=== PATIENT | male | born 1935 | race Caucasian/White ===

== ENCOUNTER 2021-12-01 19:01 | Inpatient (IN) | payer BC, MEDICARE ==
--- NOTE | 2021-12-01 19:15 | ED ---
Weakness HPI - General Stated complaint: A-FIB - History of Present Illness Initial comments: This is a pleasant 87-year-old male history of diabetes mellitus, hyperlipid emia, hypertension. He presents to the emergency room today stating that he was coming from his porch into his kitchen and ended up getting lightheaded. Patient then fell backwards back onto the porch. Patient states he was not injured, he was able to get up on his own. He did not lose consciousness. Patient states he continued to have some lightheadedness with change of position. He denied any other preceding symptomology. There is no headache. No chest pain. No palpitations. Patient was noted to have atrial fibrillation on the rhythm strip in the ambulance. Patient has no history of this. Patient denies any head or neck pain. Patient not on blood thinners. Does take a daily aspirin. Patient denies hitting his head at all. LIGHTHEADEDNESS, No headache, no fever or chills, no changes in vision or hearing, no sore throat or difficulty with speech, no neck pain, no chest pain or shortness of breath, no abdominal pain, no nausea or vomiting, no changes in urination or bowel movements, no numbness or tingling, no extremity pain, no skin rashes or lesions. Past medical, surgical, social, and family history reviewed. - Related Data Home Medications Medication Instructions Recorded Confirmed Aspirin 325 mg PO DAILY 11/18/13 12/01/21 Metoprolol Tartrate [Lopressor] 25 mg PO BID 11/18/13 12/01/21 Simvastatin [Zocor] 20 mg PO HS 11/18/13 12/01/21 amLODIPine BESYLATE/BENAZEPRIL 1 cap PO DAILY 11/18/13 12/01/21 [Amlodipine-Benazepril 10-20 mg] cloNIDine HCL [Catapres] 0.1 mg PO HS 11/18/13 12/01/21 Tamsulosin HCl [Flomax] 0.4 mg PO DAILY 12/01/21 12/01/21 Tolterodine ER [Detrol LA] 4 mg PO DAILY 12/01/21 12/01/21 metFORMIN HCL ER [Glucophage XR] 1,000 mg PO BID 12/01/21 12/01/21 Allergies Allergy/AdvReac Type Severity Reaction Status Date / Time No Known Allergies Allergy Verified 12/01/21 21:48 Review of Systems ROS Statement: Those systems with pertinent positive or pertinent negative responses have been documented in the HPI. ROS Other: All systems not noted in ROS Statement are negative. Past Medical History Past Medical History: Diabetes Mellitus, Hyperlipidemia, Hypertension History of Any Multi-Drug Resistant Organisms: None Reported Past Surgical History: Coronary Bypass/CABG Past Psychological History: No Psychological Hx Reported Past Alcohol Use History: Rare Past Drug Use History: None Reported General Exam - General Exam Comments Initial Comments: Cranial nerves II through XII are intact. Patient is alert and oriented 4. Does not appear to be ill or toxic. No distress or complaints at the time I'm seeing him. Appears to be adequately hydrated. No mottling. Normal capillary refill. General appearance: alert, in no apparent distress Head exam: Present: atraumatic, normocephalic, normal inspection Eye exam: Present: normal appearance, PERRL, EOMI. Absent: scleral icterus, conjunctival injection, periorbital swelling ENT exam: Present: normal exam, mucous membranes moist Neck exam: Present: normal inspection, full ROM. Absent: tenderness, meningismus, lymphadenopathy Respiratory exam: Present: normal lung sounds bilaterally. Absent: respiratory distress, wheezes, rales, rhonchi, stridor, chest wall tenderness, accessory muscle use Cardiovascular Exam: Present: regular rate, irregular rhythm, normal heart sounds. Absent: systolic murmur, diastolic murmur, rubs, gallop, clicks GI/Abdominal exam: Present: soft, normal bowel sounds. Absent: distended, tenderness, guarding, rebound, rigid Extremities exam: Present: normal inspection, full ROM, normal capillary refill. Absent: tenderness, pedal edema, joint swelling, calf tenderness Back exam: Present: normal inspection Neurological exam: Present: alert, oriented X3, CN II-XII intact Psychiatric exam: Present: normal affect, normal mood Skin exam: Present: warm, dry, intact, normal color. Absent: rash Course Vital Signs 12/01/21 12/02/21 12/02/21 19:43 00:32 02:02 Temperature 99.0 F Pulse Rate 88 72 70 Respiratory 15 18 18 Rate Blood Pressure 129/68 141/68 O2 Sat by Pulse 98 96 97 Oximetry - Reevaluation(s) Reevaluation #1: 12/01/21 20:58 Medical record is reviewed Symptoms are improved here in the emergency department Patient is informed of results and questions answered Patient in no distress EKG Findings - EKG Comments: EKG Findings:: EKG done at 1925 read by the ED attending physician reveals sinus rhythm with frequent PACs. Nonspecific ST-T wave changes, mainly some T-wave flattening in V6 and some artifact in the precordial leads. Normal axis. Normal QRS morphology on baseline complexes. Patient does have a biphasic P wave. There is no comparison study Medical Decision Making - Medical Decision Making Visual with lightheadedness and rhythm strip consistent with new onset atrial fibrillation. Patient in no distress at the time I'm seeing him. Recalls the entire event. Did not lose consciousness. Had no preceding symptomology other than lightheadedness. Did not hit his head or neck. Not on blood thinners. Plan for evaluation and probable admission. Patient ended up having low magnesium in addition to the nonspecific cardiac arrhythmia. The case was discussed in detail with ED attending physician. Presentation, findings, treatment plan discussed in detail. Patient admitted to [facility] for further evaluation and treatment. Discussed with the [facility]. Supervising physician is Dr. Wetzel - Lab Data Result diagrams: 12/01/21 19:35 12/01/21 19:35 Lab Results 12/01/21 12/01/21 12/01/21 Range/Units 19:35 19:35 19:35 WBC 7.5 (3.8-10.6) k/uL RBC 3.40 L (4.30-5.90) m/uL Hgb 11.0 L (13.0-17.5) gm/dL Hct 32.5 L (39.0-53.0) % MCV 95.5 (80.0-100.0) fL MCH 32.4 (25.0-35.0) pg MCHC 33.9 (31.0-37.0) g/dL RDW 12.6 (11.5-15.5) % Plt Count 96 L (150-450) k/uL MPV 8.3 Neutrophils % 85 % Lymphocytes % 6 % Monocytes % 7 % Eosinophils % 0 % Basophils % 0 % Neutrophils # 6.4 (1.3-7.7) k/uL Lymphocytes # 0.5 L (1.0-4.8) k/uL Monocytes # 0.5 (0-1.0) k/uL Eosinophils # 0.0 (0-0.7) k/uL Basophils # 0.0 (0-0.2) k/uL PT 10.6 (9.0-12.0) sec INR 1.0 (<1.2) APTT 18.7 L (22.0-30.0) sec Sodium 137 (137-145) mmol/L Potassium 4.6 (3.5-5.1) mmol/L Chloride 103 (98-107) mmol/L Carbon Dioxide 19 L (22-30) mmol/L Anion Gap 15 mmol/L BUN 23 H (9-20) mg/dL Creatinine 1.17 (0.66-1.25) mg/dL Est GFR (CKD-EPI)AfAm 64 (>60 ml/min/1.73 sqM) Est GFR (CKD-EPI)NonAf 55 (>60 ml/min/1.73 sqM) Glucose 136 H (74-99) mg/dL Calcium 9.0 (8.4-10.2) mg/dL Magnesium 1.2 L (1.6-2.3) mg/dL Total Bilirubin 0.6 (0.2-1.3) mg/dL AST 32 (17-59) U/L ALT 9 (4-49) U/L Alkaline Phosphatase 46 (38-126) U/L Troponin I (0.000-0.034) ng/mL NT-Pro-B Natriuret Pep pg/mL Total Protein 6.6 (6.3-8.2) g/dL Albumin 4.3 (3.5-5.0) g/dL TSH 2.130 (0.465-4.680) mIU/L 12/01/21 12/01/21 Range/Units 19:35 19:35 WBC (3.8-10.6) k/uL RBC (4.30-5.90) m/uL Hgb (13.0-17.5) gm/dL Hct (39.0-53.0) % MCV (80.0-100.0) fL MCH (25.0-35.0) pg MCHC (31.0-37.0) g/dL RDW (11.5-15.5) % Plt Count (150-450) k/uL MPV Neutrophils % % Lymphocytes % % Monocytes % % Eosinophils % % Basophils % % Neutrophils # (1.3-7.7) k/uL Lymphocytes # (1.0-4.8) k/uL Monocytes # (0-1.0) k/uL Eosinophils # (0-0.7) k/uL Basophils # (0-0.2) k/uL PT (9.0-12.0) sec INR (<1.2) APTT (22.0-30.0) sec Sodium (137-145) mmol/L Potassium (3.5-5.1) mmol/L Chloride (98-107) mmol/L Carbon Dioxide (22-30) mmol/L Anion Gap mmol/L BUN (9-20) mg/dL Creatinine (0.66-1.25) mg/dL Est GFR (CKD-EPI)AfAm (>60 ml/min/1.73 sqM) Est GFR (CKD-EPI)NonAf (>60 ml/min/1.73 sqM) Glucose (74-99) mg/dL Calcium (8.4-10.2) mg/dL Magnesium (1.6-2.3) mg/dL Total Bilirubin (0.2-1.3) mg/dL AST (17-59) U/L ALT (4-49) U/L Alkaline Phosphatase (38-126) U/L Troponin I <0.012 (0.000-0.034) ng/mL NT-Pro-B Natriuret Pep 867 pg/mL Total Protein (6.3-8.2) g/dL Albumin (3.5-5.0) g/dL TSH (0.465-4.680) mIU/L - Radiology Data Radiology results: report reviewed, image reviewed Disposition Clinical Impression: Syncope, near, Hypomagnesemia, Cardiac arrhythmia, unspecified Disposition: ADMITTED IP TO THIS [facility] Condition: Stable Is patient prescribed a controlled substance at d/c from ED?: No Decision to Admit Reason: Admit from EC Decision Time: 20:58
[2021-12-01] MEDS ORDERED: SODIUM CHLORIDE 0.9% 500 ML 500 ML IV STA (19:22)
[2021-12-01 20:08] LABS: Basophils % (A) 0 %; Eosinophils % (A) 0 %; HCT 32.5 % (39.0-53.0); Lymphocytes # (A) 0.5 k/uL (1.0-4.8); Lymphocytes % (A) 6 %; MCH 32.4 pg (25.0-35.0); MCHC 33.9 g/dL (31.0-37.0); MCV 95.5 fL (80.0-100.0); Mean Platelet Volume 8.3; Monocytes # (A) 0.5 k/uL (0-1.0); Monocytes % (A) 7 %; Neutrophils # (A) 6.4 k/uL (1.3-7.7); Neutrophils % (A) 85 %; RDW 12.6 % (11.5-15.5); WBC 7.5 k/uL (3.8-10.6)
[2021-12-01 20:17] LABS: Platelet Count 96 k/uL (150-450)
[2021-12-01 20:22] LABS: ALT 9 U/L (4-49); AST 32 U/L (17-59); African American GFR (CKD) 64 (>60 ml/min/1.73 sqM); Albumin 4.3 g/dL (3.5-5.0); Alkaline Phosphatase 46 U/L (38-126); Anion Gap 15 mmol/L; Blood Urea Nitrogen 23 mg/dL (9-20); Carbon Dioxide 19 mmol/L (22-30); Chloride 103 mmol/L (98-107); Glucose 136 mg/dL (74-99); Magnesium 1.2 mg/dL (1.6-2.3); Non-African American GFR(CKD) 55 (>60 ml/min/1.73 sqM); Potassium 4.6 mmol/L (3.5-5.1); Sodium 137 mmol/L (137-145); Total Bilirubin 0.6 mg/dL (0.2-1.3); Total Protein 6.6 g/dL (6.3-8.2)
[2021-12-01 20:30] LABS: Prothrombin Time 10.6 sec (9.0-12.0)
[2021-12-01 20:35] LABS: Partial Thromboplastin Time 18.7 sec (22.0-30.0)
--- NOTE | 2021-12-01 20:36 | XR ---
EXAMINATION TYPE: XR chest 1V portable DATE OF EXAM: 12/01/2021 COMPARISON: NONE HISTORY: Atrial fibrillation TECHNIQUE: Single view FINDINGS: There is some coarsening of the interstitial markings in the lower lobes. There is some coa lescent density lateral left lung base. No heart failure. There are sternal wires. Heart size is fair ly normal. There are calcified granulomata at the pulmonary padmini. IMPRESSION: There is evidence of some left lower lobe pneumonia. Old granulomatous disease. No heart failure.
[2021-12-01] MEDS ORDERED: Magnesium Replacement Protocol 1 EACH MISC MISCELLANE PRN (20:57)
[2021-12-01] MEDS: MAGNESIUM SULFATE-D5W PMX 1 GM in DEXTROSE/WATER 1 100ML.BAG IVPB SCH (21:27)
[2021-12-01] MEDS ORDERED: NALOXONE 0.4 MG/ML 1 ML VIAL IV PRN (21:49)
[2021-12-01] MEDS ORDERED: DEXTROSE 50% SYRINGE 50 ML IVP PRN ×2 (21:55)
[2021-12-01] MEDS ORDERED: ACETAMINOPHEN TAB 325 MG TAB PO PRN (22:30)
[2021-12-02] MEDS: MAGNESIUM SULFATE-D5W PMX 1 GM in DEXTROSE/WATER 1 100ML.BAG IVPB SCH ×2 (00:12→03:29)
[2021-12-02 01:16] LABS: Appearance,Urine Clear (Clear); Bilirubin,Urine Negative (Negative); Blood,Urine Negative (Negative); Color,Urine Colorless; Glucose,Urine (UA) Negative (Negative); Ketones,Urine Negative (Negative); Leukocyte Esterase,Urine Negative (Negative); Nitrite,Urine Negative (Negative); PH, Urine 7.5 (5.0-8.0); Protein,Urine Trace (Negative); Specific Gravity,Urine 1.007 (1.001-1.035); Urobilinogen,Urine <2.0 mg/dL (<2.0)
[2021-12-02 03:24] LABS: Basophils # (A) 0.1 k/uL (0-0.2); Basophils % (A) 1 %; Eosinophils % (A) 0 %; HGB 12.5 gm/dL (13.0-17.5); Lymphocytes # (A) 0.5 k/uL (1.0-4.8); Lymphocytes % (A) 8 %; MCH 33.3 pg (25.0-35.0); MCHC 34.6 g/dL (31.0-37.0); MCV 96.1 fL (80.0-100.0); Mean Platelet Volume 7.8; Monocytes # (A) 0.6 k/uL (0-1.0); Monocytes % (A) 9 %; Neutrophils # (A) 4.7 k/uL (1.3-7.7); Neutrophils % (A) 79 %; RBC 3.75 m/uL (4.30-5.90)
[2021-12-02 03:36] LABS: Platelet Count 176 k/uL (150-450)
[2021-12-02 03:40] LABS: Calcium 8.7 mg/dL (8.4-10.2); Magnesium 1.8 mg/dL (1.6-2.3); Potassium 4.2 mmol/L (3.5-5.1)
[2021-12-02 06:04] LABS: Glucose,Whole Blood 136 mg/dL (70-110)
[2021-12-02] MEDS: INSULIN ASPART (NovoLOG) 100 UNIT/ML VIAL SQ SCH ×5 (06:28→20:31)
[2021-12-02] MEDS ORDERED: lisinopriL 20 MG TAB PO SCH (09:00)
[2021-12-02] MEDS: amLODIPine 10 MG TAB PO SCH (09:00)
[2021-12-02] MEDS: TAMSULOSIN 0.4 MG CAP.ER.24H PO SCH (09:00)
[2021-12-02] MEDS: ASPIRIN 325 MG TAB PO SCH (09:00)
[2021-12-02] MEDS ORDERED: METOPROLOL TARTRATE 25 MG TAB PO SCH (09:00)
[2021-12-02] MEDS: HEPARIN SODIUM,PORCINE/PF 5,000 UNIT/0.5 ML SYRINGE SQ SCH ×2 (09:01→20:30)
[2021-12-02] MEDS: OXYBUTYNIN 10 MG TAB.ER.24 PO SCH (09:01)
[2021-12-02] MEDS ORDERED: VALSARTAN 160 MG TAB PO SCH (09:15)
--- NOTE | 2021-12-02 11:03 | P.CRDCN ---
History of Present Illness History of present illness: HISTORY OF PRESENTING ILLNESS This is a pleasant 86-year-old male past medical history significant for coronary artery disease with prior CABG, type 2 diabetes, hypertension, dyslipidemia. He used to see Dr. Palma 10+ years ago. We have been asked to see in consultation for near-syncope, nonspecific cardiac arrhythmia. Patient presents emergency department with complaints of lightheadedness and near syncope. Patient states yesterday he was outside he was started to walk inside on his porch, he states that he stepped up on the ledge by the door and all of a sudden fell backwards and could not get up. He did not lose consciousness. He has had some symptoms of dizziness. He states he felt generalized weakness on the ground and could not get himself up. He denies any syncope in the past. He denies any chest pain, shortness of breath, palpitations, nausea, vomiting, fever, cough, chills. No history of CVA or seizures. Former smoker. DIAGNOSTICS * EKG reveals sinus rhythm, heart rate 93, PAC and PVCs noted. Nonspecific STT wave abnormalities. No acute ischemia noted. * No EKGs from EMS to review * Telemetry tracings indicate sinus rhythm with 2nd degree AV block Mobitz II, HR 60s-80s * Chest xray reported as left lower lobe pneumonia, no heart failure, sternal wires present unable to open xray images. * Laboratory reviewed, WBC 6.0, hemoglobin 12.5, platelets 176, sodium 1:30, potassium 4.2, BUN 20, serum creatinine 1.1, troponin negative 3, magnesium 1.8, BNP 867, TSH within normal limits * Current home medications include aspirin 325 mg daily, amlodipinebenazepril 1020 mg daily, clonidine 0.1 mg nightly, metoprolol titrate 25 mg twice a day, simvastatin 20 mg nightly, metformin, Detrol, Flomax REVIEW OF SYSTEMS At the time of my exam: CONSTITUTIONAL: Denies fever or chills.+lightheadedness CARDIOVASCULAR: Denies chest pain, shortness of breath, orthopnea, PND or palpitations. RESPIRATORY: Denies cough. GASTROINTESTINAL: Denies abdominal pain, diarrhea, constipation, nausea or vomiting. MUSCULOSKELETAL: Denies myalgias. NEUROLOGIC: Denies numbness, tingling, headacbe or weakness. ENDOCRINE: Denies fatigue, weight change, polydipsia or polyurina. GENITOURINARY: Denies burning, hematuria or urgency with micturation. HEMATOLOGIC: Denies history of anemia or bleeding. PHYSICAL EXAMINATION Vitals reviewed CONSTITUTIONAL: No apparent distress. HEENT: Head is normocephalic. Pupils are equal, round. Sclerae anicteric. Mucous membranes of the mouth are moist. No JVD. No carotid bruit. CHEST EXAMINATION: Lungs are clear to auscultation. No chest wall tenderness is noted on palpation or with deep breathing. HEART EXAMINATION: Regular rate and rhythm. S1, S2 heard. No murmurs, gallops or rub. ABDOMEN: Soft, nontender. Positive bowel sounds. EXTREMITIES: 2+ peripheral pulses, no lower extremity edema and no calf tenderness. NEUROLOGIC EXAMINATION: Patient is awake, alert and oriented x3. ASSESSMENT Lightheadedness/Dizziness, possible near syncope 2nd degree AV block mobitz II Generalized weakness Hypomagnesemia, resolved Coronary artery disease with prior CABG Type 2 diabetes History of hypertension Dyslipidemia PLAN Obtain 2D echocardiogram and doppler study to assess cardiac structure and function. Stop clonidine and beta foreign Continue amlodipine 10 mg daily Start valsartan 160 mg daily Continue statin Continue cardiac telemetry Patient likely will need a pacemaker, will continue to monitor, NPO after midnight based on above findings Further recommendations based on clinical course Nurse practitioner note has been reviewed by physician. Signing provider agrees with the documented findings, assessment, and plan of care. Past Medical History Past Medical History: Diabetes Mellitus, Hyperlipidemia, Hypertension History of Any Multi-Drug Resistant Organisms: None Reported Past Surgical History: Coronary Bypass/CABG Smoking Status: Former smoker Medications and Allergies Home Medications Medication Instructions Recorded Confirmed Type Aspirin 325 mg PO DAILY 11/18/13 12/01/21 History Metoprolol Tartrate [Lopressor] 25 mg PO BID 11/18/13 12/01/21 History Simvastatin [Zocor] 20 mg PO HS 11/18/13 12/01/21 History amLODIPine BESYLATE/BENAZEPRIL 1 cap PO DAILY 11/18/13 12/01/21 History [Amlodipine-Benazepril 10-20 mg] cloNIDine HCL [Catapres] 0.1 mg PO HS 11/18/13 12/01/21 History Tamsulosin HCl [Flomax] 0.4 mg PO DAILY 12/01/21 12/01/21 History Tolterodine ER [Detrol LA] 4 mg PO DAILY 12/01/21 12/01/21 History metFORMIN HCL ER [Glucophage XR] 1,000 mg PO BID 12/01/21 12/01/21 History Allergies Allergy/AdvReac Type Severity Reaction Status Date / Time No Known Allergies Allergy Verified 12/01/21 21:48 Physical Exam Vitals: Vital Signs Temp Pulse Pulse Resp BP BP Pulse Ox 12/02/21 02:48 99.4 F 82 16 159/68 95 12/02/21 02:02 70 18 141/68 97 12/02/21 00:32 72 18 96 12/01/21 19:43 99.0 F 88 15 129/68 98 Intake and Output 12/01/21 12/01/21 12/02/21 14:59 22:59 06:59 Output Total 675 Balance -675 Output: Urine 675 Other: Voiding Method Toilet Urinal # Voids 1 Weight 72.575 kg 72.575 kg Results 12/02/21 03:07 12/02/21 03:07 Cardiac Enzymes 12/01/21 12/01/21 12/02/21 Range/Units 19:35 19:35 00:53 AST 32 (17-59) U/L Troponin I <0.012 <0.012 (0.000-0.034) ng/mL 12/02/21 Range/Units 03:07 AST (17-59) U/L Troponin I <0.012 (0.000-0.034) ng/mL Coagulation 12/01/21 Range/Units 19:35 PT 10.6 (9.0-12.0) sec APTT 18.7 L (22.0-30.0) sec CBC 12/01/21 12/02/21 Range/Units 19:35 03:07 WBC 7.5 6.0 (3.8-10.6) k/uL RBC 3.40 L 3.75 L (4.30-5.90) m/uL Hgb 11.0 L 12.5 L (13.0-17.5) gm/dL Hct 32.5 L 36.0 L (39.0-53.0) % Plt Count 96 L 176 D (150-450) k/uL Comprehensive Metabolic Panel 12/01/21 12/02/21 Range/Units 19:35 03:07 Sodium 137 138 (137-145) mmol/L Potassium 4.6 4.2 (3.5-5.1) mmol/L Chloride 103 104 (98-107) mmol/L Carbon Dioxide 19 L 23 (22-30) mmol/L BUN 23 H 20 (9-20) mg/dL Creatinine 1.17 1.12 (0.66-1.25) mg/dL Glucose 136 H 134 H (74-99) mg/dL Calcium 9.0 8.7 (8.4-10.2) mg/dL AST 32 (17-59) U/L ALT 9 (4-49) U/L Alkaline Phosphatase 46 (38-126) U/L Total Protein 6.6 (6.3-8.2) g/dL Albumin 4.3 (3.5-5.0) g/dL Current Medications Generic Name Dose Route Start Last Admin Trade Name Freq PRN Reason Stop Dose Admin Acetaminophen 650 mg 12/01/21 22:30 Acetaminophen Tab 325 Mg Tab PO Q6HR PRN Mild Pain or Fever > 100.5 Amlodipine Besylate 10 mg 12/02/21 09:00 Amlodipine 10 Mg Tab PO DAILY [facility] Aspirin 325 mg 12/02/21 09:00 Aspirin 325 Mg Tab PO DAILY [facility] Atorvastatin Calcium 10 mg 12/02/21 21:00 Atorvastatin 10 Mg Tab PO HS [facility] Clonidine 0.1 mg 12/02/21 21:00 Clonidine Hcl 0.1 Mg Tab PO HS [facility] Dextrose/Water 25 ml 12/01/21 21:55 Dextrose 50% Syringe 50 Ml IVP PER PROTOCOL PRN Hypoglycemia Protocol Dextrose/Water 50 ml 12/01/21 21:55 Dextrose 50% Syringe 50 Ml IVP PER PROTOCOL PRN Hypoglycemia Protocol Heparin Sodium (Porcine) 5,000 unit 12/02/21 09:00 Heparin Sodium,Porcine/Pf 5,000 Unit/0.5 Ml Syringe SQ Q12HR [facility] Insulin Aspart 0 unit 12/02/21 07:30 12/02/21 06:28 Insulin Aspart (Novolog) 100 Unit/Ml Vial SQ Not Given ACHS [facility] Protocol Lisinopril 40 mg 12/02/21 09:00 Lisinopril 20 Mg Tab PO DAILY [facility] Metoprolol Tartrate 25 mg 12/02/21 09:00 Metoprolol Tartrate 25 Mg Tab PO BID [facility] Miscellaneous Information 1 each 12/01/21 20:57 Magnesium Replacement Protocol 1 Each Misc MISCELLANE DAILY PRN Per Protocol Protocol Naloxone HCl 0.2 mg 12/01/21 21:49 Naloxone 0.4 Mg/Ml 1 Ml Vial IV Q2M PRN Opioid Reversal Oxybutynin Chloride 10 mg 12/02/21 09:00 Oxybutynin 10 Mg Tab.Er.24 PO DAILY [facility] Tamsulosin HCl 0.4 mg 12/02/21 09:00 Tamsulosin 0.4 Mg Cap.Er.24h PO DAILY [facility] Intake and Output 12/01/21 12/01/21 12/02/21 14:59 22:59 06:59 Output Total 675 Balance -675 Output: Urine 675 Other: Voiding Method Toilet Urinal # Voids 1 Weight 72.575 kg 72.575 kg Patient Weight 12/02/21 06:59 Weight 72.575 kg 12/02/21 03:07 12/02/21 03:07
[2021-12-02] MEDS ORDERED: SODIUM CHLORIDE 0.9% 1,000 ML IV SCH ×3 (12:00→12:15)
--- NOTE | 2021-12-02 12:35 | P.HPIM ---
History of Present Illness H&P Date: 12/02/21 This is an 86 year old male patient of Dr. Newby, past medical history of hypertension, hyperlipidemia, diabetes, coronary artery bypass grafting. Follows with Dr Palma. Patient presents to the emergency room with complaints of lightheadedness while ambulating resulting in fall. States he was sitting on porch, got up, and had just reached the last step into his house when he felt dizzy and fell backwards. Patient states he did not lose consciousness, denies injury. No chest pain reported. There was question of patient being in atrial fibrillation in the EC. EKG in the ER shows sinus rhythm with PVC's heart rate of 93. QT interval 436. Patient had chest xray showing possible left lower lobe pneumonia. Chest xray reviewed pleural effusion possibly from fluid overload, pneumonia felt unlikely. Does not have a white count, has maintained adequate saturation on room air, 97%. Denies shortness of breath. Does have low grade fever 99.4. Patient received a 1L fluid bolus in the E.C. Troponin level negative x 3, proBNP 867. TSH within normal limits. Urinalysis is negative. Patient admitted to the hospital with consult placed to cardiology, echocardiogram has been ordered. Will check orthostatics and procalcitonin level. REVIEW OF SYSTEMS: CONSTITUTIONAL: No fever, no malaise, no fatigue. HEENT: No recent visual problems or hearing problems. Denied any sore throat. CARDIOVASCULAR: No chest pain, orthopnea, PND, no palpitations, reports dizziness lightheadedness with ambulation PULMONARY: No shortness of breath, no cough, no hemoptysis. GASTROINTESTINAL: No diarrhea, no nausea, no vomiting, no abdominal pain. NEUROLOGICAL: No headaches, no weakness, no numbness. HEMATOLOGICAL: Denies any bleeding or petechiae. GENITOURINARY: Denies any burning micturition, frequency, or urgency. MUSCULOSKELETAL/RHEUMATOLOGICAL: Denies any joint pain, swelling, or any muscle pain. ENDOCRINE: Denies any polyuria or polydipsia. The rest of the 14-point review of systems is negative. PHYSICAL EXAMINATION: GENERAL: The patient is alert and oriented x3, not in any acute distress. Well developed, well nourished. HEENT: Pupils are round and equally reacting to light. EOMI. No scleral icterus. No conjunctival pallor. Normocephalic, atraumatic. No pharyngeal erythema. No thyromegaly. CARDIOVASCULAR: S1 and S2 present. Systolic Murmur PULMONARY: Chest is clear to auscultation, no wheezing or crackles. ABDOMEN: Soft, nontender, nondistended, normoactive bowel sounds. No palpable organomegaly. MUSCULOSKELETAL: No joint swelling or deformity. EXTREMITIES: No cyanosis, clubbing, or pedal edema. NEUROLOGICAL: Gross neurological examination did not reveal any focal deficits. SKIN: No rashes. Assessment and Plan Assessment Presyncope with fall under investigation Left pleural effusion rule out pneumonia which is not felt likely, patient does not have white count, no dyspnea, on room air. Will check procalcitonin level. Hypomagnesemia Diabetes Mellitus type 2, A1C 6.5. Hypertension Hyperlipidemia Post CABG GI prophylaxis DVT prophylaxis Full Code Plan Cardiology consultation Echocardiogram pending Check orthostatics Check procalcitonin level Hold metformin Repeat CBC in Am The impression and plan of care has been dictated by Manisha Valdes, Nurse Practitioner as directed. Dr. Sanya MD I have performed a history and physical examination and medical decision making of this patient, discussed the same with the dictator, and agree with the dictators assessment and plan as written, documented as a scribe. Based on total visit time, I have performed more than 50% of this visit. Past Medical History Past Medical History: Diabetes Mellitus, Hyperlipidemia, Hypertension History of Any Multi-Drug Resistant Organisms: None Reported Past Surgical History: Coronary Bypass/CABG Smoking Status: Former smoker Medications and Allergies Home Medications Medication Instructions Recorded Confirmed Type Aspirin 325 mg PO DAILY 11/18/13 12/01/21 History Metoprolol Tartrate [Lopressor] 25 mg PO BID 11/18/13 12/01/21 History Simvastatin [Zocor] 20 mg PO HS 11/18/13 12/01/21 History amLODIPine BESYLATE/BENAZEPRIL 1 cap PO DAILY 11/18/13 12/01/21 History [Amlodipine-Benazepril 10-20 mg] cloNIDine HCL [Catapres] 0.1 mg PO HS 11/18/13 12/01/21 History Tamsulosin HCl [Flomax] 0.4 mg PO DAILY 12/01/21 12/01/21 History Tolterodine ER [Detrol LA] 4 mg PO DAILY 12/01/21 12/01/21 History metFORMIN HCL ER [Glucophage XR] 1,000 mg PO BID 12/01/21 12/01/21 History Allergies Allergy/AdvReac Type Severity Reaction Status Date / Time No Known Allergies Allergy Verified 12/01/21 21:48 Physical Exam Vitals: Vital Signs Temp Pulse Pulse Resp BP BP Pulse Ox 12/02/21 08:54 98.8 F 77 16 168/70 95 12/02/21 02:48 99.4 F 82 16 159/68 95 12/02/21 02:02 70 18 141/68 97 12/02/21 00:32 72 18 96 12/01/21 19:43 99.0 F 88 15 129/68 98 Intake and Output 12/01/21 12/02/21 12/02/21 22:59 06:59 14:59 Output Total 675 Balance -675 Output: Urine 675 Other: Voiding Method Toilet Urinal # Voids 1 Weight 72.575 kg 72.575 kg Results CBC & Chem 7: 12/02/21 03:07 12/02/21 03:07 Labs: Abnormal Lab Results - Last 24 Hours (Table) 12/01/21 12/01/21 12/01/21 Range/Units 19:35 19:35 19:35 RBC 3.40 L (4.30-5.90) m/uL Hgb 11.0 L (13.0-17.5) gm/dL Hct 32.5 L (39.0-53.0) % Plt Count 96 L (150-450) k/uL Lymphocytes # 0.5 L (1.0-4.8) k/uL APTT 18.7 L (22.0-30.0) sec Carbon Dioxide 19 L (22-30) mmol/L BUN 23 H (9-20) mg/dL Glucose 136 H (74-99) mg/dL POC Glucose (mg/dL) (70-110) mg/dL Magnesium 1.2 L (1.6-2.3) mg/dL Urine Protein (Negative) 12/02/21 12/02/21 12/02/21 Range/Units 00:38 03:07 03:07 RBC 3.75 L (4.30-5.90) m/uL Hgb 12.5 L (13.0-17.5) gm/dL Hct 36.0 L (39.0-53.0) % Plt Count (150-450) k/uL Lymphocytes # 0.5 L (1.0-4.8) k/uL APTT (22.0-30.0) sec Carbon Dioxide (22-30) mmol/L BUN (9-20) mg/dL Glucose 134 H (74-99) mg/dL POC Glucose (mg/dL) (70-110) mg/dL Magnesium (1.6-2.3) mg/dL Urine Protein Trace H (Negative) 12/02/21 Range/Units 06:01 RBC (4.30-5.90) m/uL Hgb (13.0-17.5) gm/dL Hct (39.0-53.0) % Plt Count (150-450) k/uL Lymphocytes # (1.0-4.8) k/uL APTT (22.0-30.0) sec Carbon Dioxide (22-30) mmol/L BUN (9-20) mg/dL Glucose (74-99) mg/dL POC Glucose (mg/dL) 136 H (70-110) mg/dL Magnesium (1.6-2.3) mg/dL Urine Protein (Negative) Thrombosis Risk Factor Assmnt - Choose All That Apply Any of the Below Risk Factors Present?: No Other Risk Factors: Yes Each Risk Factor Represents 3 Points: Age 75 years or older Other congenital or acquired thrombophilia - If yes, enter type in comment: No Thrombosis Risk Factor Assessment Total Risk Factor Score: 3 Thrombosis Risk Factor Assessment Level: Moderate Risk Assessment and Plan Time with Patient: Less than 30
[2021-12-02] MEDS: VALSARTAN 160 MG TAB PO SCH ×2 (12:40→20:31)
[2021-12-02] MEDS: SODIUM CHLORIDE 0.9% 1,000 ML IV SCH (12:47)
[2021-12-02 13:29] LABS: Glucose,Whole Blood 316 mg/dL (70-110)
[2021-12-02 16:58] LABS: Glucose,Whole Blood 203 mg/dL (70-110)
[2021-12-02 20:08] LABS: Glucose,Whole Blood 141 mg/dL (70-110)
[2021-12-02] MEDS: ATORVASTATIN 10 MG TAB PO SCH (20:30)
[2021-12-02] MEDS: INSULIN DETEMIR (LEVEMIR) 100 UNIT/ML SYR SQ SCH (20:31)
[2021-12-02] MEDS ORDERED: cloNIDine HCL 0.1 MG TAB PO SCH (21:00)
[2021-12-03] MEDS: TAMSULOSIN 0.4 MG CAP.ER.24H PO SCH (06:19)
[2021-12-03] MEDS: ASPIRIN 325 MG TAB PO SCH (06:19)
[2021-12-03] MEDS: VALSARTAN 160 MG TAB PO SCH ×2 (06:19→21:23)
[2021-12-03] MEDS: amLODIPine 10 MG TAB PO SCH (06:20)
[2021-12-03] MEDS: OXYBUTYNIN 10 MG TAB.ER.24 PO SCH (06:20)
[2021-12-03 06:27] LABS: Glucose,Whole Blood 138 mg/dL (70-110)
[2021-12-03] MEDS ORDERED: ceFAZolin 1 GM in SODIUM CHLORIDE 0.9% IRRIG BTL 250 ML IRRIGATION PRN (07:00)
[2021-12-03] MEDS: INSULIN ASPART (NovoLOG) 100 UNIT/ML VIAL SQ SCH ×7 (08:31→21:01)
[2021-12-03 08:45] LABS: Calcium 8.5 mg/dL (8.4-10.2); Magnesium 1.7 mg/dL (1.6-2.3); Potassium 3.9 mmol/L (3.5-5.1)
[2021-12-03] MEDS ORDERED: IV FLUID CONTINUATION 450 ML IV ONE (09:00)
[2021-12-03] MEDS ORDERED: IOPAMIDOL-370 50ML BTL INJ ONE (09:45)
[2021-12-03] MEDS ORDERED: LIDOCAINE 1% INJ 10MG/ML (30 ML VIAL-PF) SQ ONE (09:59)
--- NOTE | 2021-12-03 11:28 | CA ---
Transthoracic Echo Report Name: Abisai Acevedo Age: 86 Gender: M : 1935 Exam Date: 12/02/2021 11:50 Exam Location: [facility] Ht (in): 66 Wt (lb): 160 Ordering Physician: Carla Vidal Attending/Referring Phys: Ballast Regulator Operator Yanci Miller RDCS Procedure CPT: Indications: Dizziness, 2nd degree AV block Cardiac Hx: Technical Quality: Fair Contrast 1: Total Dose (mL): Contrast 2: Total Dose (mL): MEASUREMENTS (Male / Female) Normal Values 2D ECHO LV Diastolic Diameter PLAX 4.5 cm 4.2 - 5.9 / 3.9 - 5.3 cm LV Systolic Diameter PLAX 2.3 cm IVS Diastolic Thickness 1.2 cm 0.6 - 1.0 / 0.6 - 0.9 cm LVPW Diastolic Thickness 1.2 cm 0.6 - 1.0 / 0.6 - 0.9 cm LV Relative Wall Thickness 0.5 RV Internal Dim ED PLAX 3.5 cm LA Volume 59.5 cm??? 18 - 58 / 22 - 52 cm??? M-MODE Aortic Root Diameter MM 2.9 cm LA Systolic Diameter MM 5.1 cm LA Ao Ratio MM 1.8 AV Cusp Separation MM 1.4 cm DOPPLER AV Peak Velocity 190.9 cm/s AV Peak Gradient 14.6 mmHg AI Peak Velocity 428.0 cm/s AI Peak Gradient 73.3 mmHg AI Pressure Half Time 627.7 ms LVOT Peak Velocity 100.9 cm/s LVOT Peak Gradient 4.1 mmHg MV Area PHT 3.0 cm??? Mitral E Point Velocity 89.2 cm/s Mitral A Point Velocity 106.6 cm/s Mitral E to A Ratio 0.8 MV Deceleration Time 257.1 ms MV E' Velocity 6.0 cm/s Mitral E to MV E' Ratio 14.9 TR Peak Velocity 255.1 cm/s TR Peak Gradient 26.0 mmHg Right Ventricular Systolic Press 30.6 mmHg FINDINGS Left Ventricle Mildly increased left ventricular wall thickness. Normal left ventricular systolic function with no obvious regional wall motion abnormalities. Left ventricular ejection fraction is estimated at 55-60 %. Right Ventricle Mild right ventricular dilatation. Right Atrium Normal right atrial size. Left Atrium Mildly increased left atrial volume. Mitral Valve Mild mitral annular calcification. [id number] mitral regurgitation. Aortic Valve No aortic stenosis. Aortic valve sclerosis. Focal thickening of the aortic valve cusps. Mild aortic regurgitation. Tricuspid Valve Structurally normal tricuspid valve. Mild tricuspid regurgitation. Pulmonic Valve No pulmonic stenosis. Pericardium No pericardial effusion. Aorta Normal size aortic root and proximal ascending aorta. CONCLUSIONS Normal left ventricular EF 55-60% Mild to moderate mitral regurgitation Mild aortic regurgitation Mild tricuspid regurgitation No pericardial effusion Previewed by: Dr. Herber Pantoja DO (Electronically Signed) Final Date: 03 December 2021 11:27
[2021-12-03] MEDS ORDERED: ACETAMINOPHEN IV (For NPO) 1,000 MG in EMPTY BAG 1 BAG IVPB ONE (12:11)
[2021-12-03] MEDS ORDERED: ACETAMINOPHEN TAB 325 MG TAB PO PRN (12:11)
--- NOTE | 2021-12-03 12:17 | P.EPPROC ---
- EP Procedure Note Electrophysiology Procedure Note: Diagnosis Syncope Intermittent Mobitz 2 AV block with bradycardia Procedure Biventricular pacemaker with left bundle pacing to avoid RV pacing Bradycardia, standard pacemaker will result in RV pacing >40% Procedure LB/ biventricular pacemaker implantation Details Patient was brought to the EP lab in a fasting state. Written informed consent was obtained prior to the procedure. Conscious sedation provided by anesthesia team IV antibiotics administered. Local anesthesia administered. A 4 cm incision made in the pectoral area. Subfascial pocket made. Venous access obtained Venous sheaths placed. Leads placed in the right heart Atrial lead position the right atrial appendage. Pain is 0.5-1.2 mV, pacing threshold 0.5 V at 0.4 ms and pacing impedance 589 ohms [employer] screw-in lead RV lead position in the RV apex. Passive lead in RV apex Pacing threshold 0.5 1.4 ms, pacing impedance 1083 ohms Left bundle lead placed. Screwed in left bundle area. QR pattern Pacing threshold 0.5 1.4 ms and pacing impedance of 456 ohms QRS width at an output of 3.5 Woltz was 130 ms Stimulus to week of V6 was 76 ms At an pacing amplitude of 2 V, QRS width 120 ms but with the exact same stimulus to V6 peak of 76 ms Biventricular pacemaker device connected to the leads and placed in the subfascial pocket Patient tolerated the procedure well without acute complications Pacemaker programmed to DDD mode with a NY interval longer than intrinsic NY to minimize pacing Patient will pace only when he has Mobitz 2 heart block Left bundle-RV offset of 80 ms
--- NOTE | 2021-12-03 12:18 | P.PCN ---
Preoperative Diagnosis: Left upper extremity venogram 15 mL IV dye injected in the left arm Patent left axillary and subclavian vein with her plan Proceed with biventricular pacemaker implant
[2021-12-03] MEDS: HEPARIN SODIUM,PORCINE/PF 5,000 UNIT/0.5 ML SYRINGE SQ SCH ×2 (14:34→21:01)
--- NOTE | 2021-12-03 15:51 | XR ---
EXAMINATION TYPE: XR chest 1V portable DATE OF EXAM: 12/03/2021 COMPARISON: 12/01/2021 HISTORY: Pacer placement TECHNIQUE: Frontal and lateral views of the chest are obtained. FINDINGS: Scattered senescent parenchymal changes noted. Hyperinflation compatible with COPD. No evidence for infiltrate. No evidence for atelectasis. Heart size is stable. Dual-lead pacer is in place with distal leads overlying the right atrium and ri ght ventricle respectively. No pneumothorax noted. Mediastinal structures are stable and grossly unremarkable. No evidence for hilar prominence. Degenerative changes dorsal spine. IMPRESSION: 1. No evidence for acute pulmonary disease.
--- NOTE | 2021-12-03 16:17 | P.PN ---
Subjective This is an 86 year old male patient of Dr. Newby, past medical history of hypertension, hyperlipidemia, diabetes, coronary artery bypass grafting. Follows with Dr Palma. Patient presents to the emergency room with complaints of lightheadedness while ambulating resulting in fall. States he was sitting on porch, got up, and had just reached the last step into his house when he felt dizzy and fell backwards. Patient states he did not lose consciousness, denies injury. No chest pain reported. There was question of patient being in atrial fibrillation in the EC. EKG in the ER shows sinus rhythm with PVC's heart rate of 93. QT interval 436. Patient had chest xray showing possible left lower lobe pneumonia. Chest xray reviewed pleural effusion possibly from fluid overload, pneumonia felt unlikely. Does not have a white count, has maintained adequate saturation on room air, 97%. Denies shortness of breath. Does have low grade fever 99.4. Patient received a 1L fluid bolus in the E.C. Troponin level negative x 3, proBNP 867. TSH within normal limits. Urinalysis is negative. Patient admitted to the hospital with consult placed to cardiology, echocardiogram has been ordered. Will check orthostatics and procalcitonin level. 12/03/2021 patient is a status post pacemaker placement today, he tolerated the procedure well. Postoperatively patient was sitting up in bed, at bedside, both smiling and pleasant with the result. Patient denies any chest pain or dizziness or any other specific symptoms. Both patient and expressed their wishes they prefer patient to go to rehab for strengthening. His of normal saline 50 mL/h Creatinine 1.25. A1c is 6.5% Pro-Calcitonin 0.06, pt likely patient has atelectasis rather than pneumonia. No need for antibiotics for this reason. Patient on antibiotic by interactive media marketing specialist for his procedure Objective - Vital Signs Vital signs: Vital Signs Temp 97.6 F 12/02/21 22:55 Pulse 69 12/03/21 03:25 Resp 17 12/03/21 03:25 BP 172/79 12/03/21 03:25 Pulse Ox 96 12/03/21 03:25 FiO2 Intake & Output 12/02/21 12/03/21 12/03/21 18:59 06:59 18:59 Intake Total 120 50 Output Total 400 500 Balance -280 -500 50 Intake: IV 50 Oral 120 Output: Urine 400 500 Other: Voiding Method Toilet Toilet Urinal Urinal # Voids 1 # Bowel Movements 1 - Exam GENERAL: The patient is alert and oriented x3, not in any acute distress. Well developed, well nourished. HEENT: Pupils are round and equally reacting to light. EOMI. No scleral icterus. No conjunctival pallor. Normocephalic, atraumatic. No pharyngeal erythema. No thyromegaly. CARDIOVASCULAR: S1 and S2 present. No murmurs, rubs, or gallops. PULMONARY: Chest is clear to auscultation, no wheezing or crackles. ABDOMEN: Soft, nontender, nondistended, normoactive bowel sounds. No palpable organomegaly. MUSCULOSKELETAL: No joint swelling or deformity. EXTREMITIES: No cyanosis, clubbing, or pedal edema. NEUROLOGICAL: Gross neurological examination did not reveal any focal deficits. SKIN: No rashes. no petechiae. - Labs CBC & Chem 7: 12/02/21 03:07 12/03/21 07:10 Labs: Abnormal Lab Results - Last 24 Hours (Table) 12/02/21 12/02/21 12/02/21 Range/Units 13:17 16:57 20:06 Creatinine (0.66-1.25) mg/dL Glucose (74-99) mg/dL POC Glucose (mg/dL) 316 H 203 H 141 H (70-110) mg/dL 12/03/21 12/03/21 Range/Units 06:25 07:10 Creatinine 1.26 H (0.66-1.25) mg/dL Glucose 123 H (74-99) mg/dL POC Glucose (mg/dL) 138 H (70-110) mg/dL Assessment and Plan Assessment: Presyncope with fall under investigation Mobitz type II, symptomatic as above. Status post pacemaker on 12/03 Left atelectasis rather than pneumonia which is not felt likely, patient does not have white count, no dyspnea, on room air. Will check procalcitonin level. Hypomagnesemia Diabetes Mellitus type 2, A1C 6.5. Hypertension Hyperlipidemia Post CABG Plan: This is a pleasant 86 years old male status post pacemaker placement today for his arrhythmia. His symptoms improved. Clonidine and metoprolol Kevin on hold Metformin is on hold Patient on gentle IV fluids Cardiology team on the board. Physical therapist could not see the patient today Patient and are per for subacute rehab Labs and medication were reviewed.. Continue same treatment. Continue with symptomatic treatment. Resume home medication. Monitor lytes and vitals. DVT and GI prophylaxis. Further recommendations as per clinical course of the patient DVT prophylaxis: Subcutaneous heparin GI Prophylaxis: Pepcid PT/OT: Pending
[2021-12-03 17:00] LABS: Glucose,Whole Blood 201 mg/dL (70-110)
[2021-12-03] MEDS: SODIUM CHLORIDE 0.9% 1,000 ML IV SCH (17:41)
[2021-12-03 20:25] LABS: Glucose,Whole Blood 189 mg/dL (70-110)
[2021-12-03] MEDS: INSULIN DETEMIR (LEVEMIR) 100 UNIT/ML SYR SQ SCH (21:01)
[2021-12-03] MEDS: ATORVASTATIN 10 MG TAB PO SCH (21:01)
[2021-12-04 05:11] LABS: Calcium 8.4 mg/dL (8.4-10.2); Potassium 3.7 mmol/L (3.5-5.1)
[2021-12-04] MEDS: SODIUM CHLORIDE 0.9% 1,000 ML IV SCH (06:01)
[2021-12-04 06:07] LABS: Glucose,Whole Blood 127 mg/dL (70-110)
[2021-12-04] MEDS: INSULIN ASPART (NovoLOG) 100 UNIT/ML VIAL SQ SCH ×7 (06:07→21:14)
[2021-12-04] MEDS: ASPIRIN 325 MG TAB PO SCH (08:28)
[2021-12-04] MEDS: HEPARIN SODIUM,PORCINE/PF 5,000 UNIT/0.5 ML SYRINGE SQ SCH ×2 (08:28→21:15)
[2021-12-04] MEDS: amLODIPine 10 MG TAB PO SCH (08:29)
[2021-12-04] MEDS: VALSARTAN 160 MG TAB PO SCH ×2 (08:29→21:16)
[2021-12-04] MEDS: TAMSULOSIN 0.4 MG CAP.ER.24H PO SCH (08:29)
[2021-12-04] MEDS: OXYBUTYNIN 10 MG TAB.ER.24 PO SCH (08:29)
[2021-12-04 08:36] LABS: Basophils % (A) 0 %; Eosinophils % (A) 1 %; HCT 38.6 % (39.0-53.0); HGB 13.1 gm/dL (13.0-17.5); Lymphocytes # (A) 0.6 k/uL (1.0-4.8); Lymphocytes % (A) 12 %; MCH 33.4 pg (25.0-35.0); MCHC 33.9 g/dL (31.0-37.0); MCV 98.3 fL (80.0-100.0); Mean Platelet Volume 8.4; Monocytes # (A) 0.6 k/uL (0-1.0); Monocytes % (A) 12 %; Neutrophils # (A) 3.8 k/uL (1.3-7.7); Neutrophils % (A) 73 %; Platelet Count 157 k/uL (150-450); RBC 3.92 m/uL (4.30-5.90); RDW 12.8 % (11.5-15.5); WBC 5.2 k/uL (3.8-10.6)
[2021-12-04 11:42] LABS: Glucose,Whole Blood 140 mg/dL (70-110)
--- NOTE | 2021-12-04 13:52 | P.PN ---
Subjective This is a pleasant 86-year-old male past medical history significant for coronary artery disease with prior CABG, type 2 diabetes, hypertension, dysl ipidemia. He used to see Dr. Palma 10+ years ago. We have been asked to see in consultation for near-syncope, nonspecific cardiac arrhythmia. Patient presents emergency department with complaints of lightheadedness and near syncope. Patient states yesterday he was outside he was started to walk inside on his porch, he states that he stepped up on the ledge by the door and all of a sudden fell backwards and could not get up. He did not lose consciousness. He has had some symptoms of dizziness. He states he felt generalized weakness on the ground and could not get himself up. He denies any syncope in the past. He denies any chest pain, shortness of breath, palpitations, nausea, vomiting, fever, cough, chills. No history of CVA or seizures. Former smoker. On 12/03 patient underwent biventricular pacemaker implantation with left bundle pacing with Dr. Casey. 12/04 Patient seen and examined at bedside, no acute distress. Patient tolerated procedure well without any acute complications. Device was checked and evaluated by Dr. Casey, device functioning normally. Chest xray reviewed and stable with no acute finding. Patient is feeling well, no chest pain or shortness of breath, dizziness, lightheadedness, syncope or near syncope. Blood pressure 130/71, heart 86, afebrile, saturation 97% on room air Echocardiogram revealed an EF 5560 % mild to moderate mitral MR, mild aortic regurgitation, mild tricuspid regurgitation PHYSICAL EXAMINATION Vitals reviewed CONSTITUTIONAL: No apparent distress. HEENT: Head is normocephalic. Pupils are equal, round. Sclerae anicteric. Mucous membranes of the mouth are moist. No JVD. No carotid bruit. CHEST EXAMINATION: Lungs are clear to auscultation. No chest wall tenderness is noted on palpation or with deep breathing. HEART EXAMINATION: Regular rate and rhythm. S1, S2 heard. Systolic murmur at apex. ABDOMEN: Soft, nontender. Positive bowel sounds. EXTREMITIES: 2+ peripheral pulses, no lower extremity edema and no calf tendern ess. NEUROLOGIC EXAMINATION: Patient is awake, alert and oriented x3. ASSESSMENT Lightheadedness/Dizziness, possible near syncope 2nd degree AV block mobitz II Generalized weakness Hypomagnesemia, resolved Coronary artery disease with prior CABG Type 2 diabetes History of hypertension Dyslipidemia PLAN Stop clonidine and beta foreign Continue amlodipine 10 mg daily, aspirin 81mg daily , and valsartan 160 mg BID Continue statin From cardiology perspective, patient is stable to be discharged today. Follow-up in the office within one week. Nurse practitioner note has been reviewed by physician. Signing provider agrees with the documented findings, assessment, and plan of care. Objective - Vital Signs Vital signs: Vital Signs Temp 97.7 F 12/04/21 11:46 Pulse 86 12/04/21 11:46 Resp 16 12/04/21 11:46 BP 138/71 12/04/21 11:46 Pulse Ox 97 12/04/21 11:46 FiO2 Intake & Output 12/03/21 12/04/21 12/04/21 18:59 06:59 18:59 Intake Total 636 130 Output Total 300 375 Balance 636 300 -245 Intake: IV 400 10 Invasive Line 1 10 Oral 236 120 Output: Urine 300 375 Other: Voiding Method Toilet Toilet Urinal Urinal # Voids 1 2 - Labs CBC & Chem 7: 12/04/21 04:33 12/04/21 04:33 Labs: Abnormal Lab Results - Last 24 Hours (Table) 12/03/21 12/03/21 12/04/21 Range/Units 16:54 20:23 04:33 RBC (4.30-5.90) m/uL Hct (39.0-53.0) % Lymphocytes # (1.0-4.8) k/uL Glucose 121 H (74-99) mg/dL POC Glucose (mg/dL) 201 H 189 H (70-110) mg/dL 12/04/21 12/04/21 12/04/21 Range/Units 04:33 06:05 11:40 RBC 3.92 L (4.30-5.90) m/uL Hct 38.6 L (39.0-53.0) % Lymphocytes # 0.6 L (1.0-4.8) k/uL Glucose (74-99) mg/dL POC Glucose (mg/dL) 127 H 140 H (70-110) mg/dL
[2021-12-04 16:37] LABS: Glucose,Whole Blood 204 mg/dL (70-110)
--- NOTE | 2021-12-04 18:15 | P.PN ---
Subjective This is an 86 year old male patient of Dr. Newby, past medical history of hypertension, hyperlipidemia, diabetes, coronary artery bypass grafting. Follows with Dr Palma. Patient presents to the emergency room with complaints of lightheadedness while ambulating resulting in fall. States he was sitting on porch, got up, and had just reached the last step into his house when he felt dizzy and fell backwards. Patient states he did not lose consciousness, denies injury. No chest pain reported. There was question of patient being in atrial fibrillation in the EC. EKG in the ER shows sinus rhythm with PVC's heart rate of 93. QT interval 436. Patient had chest xray showing possible left lower lobe pneumonia. Chest xray reviewed pleural effusion possibly from fluid overload, pneumonia felt unlikely. Does not have a white count, has maintained adequate saturation on room air, 97%. Denies shortness of breath. Does have low grade fever 99.4. Patient received a 1L fluid bolus in the E.C. Troponin level negative x 3, proBNP 867. TSH within normal limits. Urinalysis is negative. Patient admitted to the hospital with consult placed to cardiology, echocardiogram has been ordered. Will check orthostatics and procalcitonin level. 12/03/2021 patient is a status post pacemaker placement today, he tolerated the procedure well. Postoperatively patient was sitting up in bed, at bedside, both smiling and pleasant with the result. Patient denies any chest pain or dizziness or any other specific symptoms. Both patient and expressed their wishes they prefer patient to go to rehab for strengthening. His of normal saline 50 mL/h Creatinine 1.25. A1c is 6.5% Pro-Calcitonin 0.06, pt likely patient has atelectasis rather than pneumonia. No need for antibiotics for this reason. Patient on antibiotic by staff editor for his procedure 12/04/2021 Patient clinically looks his stable. He is a status post pacemaker yesterday, he has splinting his left arm after the procedure. No more dizziness, no chest pain or dyspnea. Vital signs stable and heart rate is stable. No labs today. Patient was already cleared for discharge by staff editor. Clonidine and metoprolol are discontinued. Metformin 1000 mg also is on hold. Hemoglobin A1c is 6.5%. Patient and wants to go to subacute rehab, social services designee on the case. Patient may not be qualified but social services designee still working on it. Objective - Vital Signs Vital signs: Vital Signs Temp 97.7 F 12/04/21 08:00 Pulse 85 12/04/21 08:00 Resp 17 12/04/21 08:00 BP 145/72 12/04/21 08:00 Pulse Ox 93 L 12/04/21 08:00 FiO2 Intake & Output 12/03/21 12/04/21 12/04/21 18:59 06:59 18:59 Intake Total 636 130 Output Total 300 375 Balance 636 -300 -245 Intake: IV 400 10 Invasive Line 1 10 Oral 236 120 Output: Urine 300 375 Other: Voiding Method Toilet Toilet Urinal Urinal # Voids 1 2 - Exam GENERAL: The patient is alert and oriented x3, not in any acute distress. Well developed, well nourished. HEENT: Pupils are round and equally reacting to light. EOMI. No scleral icterus. No conjunctival pallor. Normocephalic, atraumatic. No pharyngeal erythema. No thyromegaly. CARDIOVASCULAR: S1 and S2 present. No murmurs, rubs, or gallops. PULMONARY: Chest is clear to auscultation, no wheezing or crackles. ABDOMEN: Soft, nontender, nondistended, normoactive bowel sounds. No palpable organomegaly. MUSCULOSKELETAL: No joint swelling or deformity. EXTREMITIES: No cyanosis, clubbing, or pedal edema. NEUROLOGICAL: Gross neurological examination did not reveal any focal deficits. SKIN: No rashes. no petechiae. - Labs CBC & Chem 7: 12/04/21 04:33 12/04/21 04:33 Labs: Abnormal Lab Results - Last 24 Hours (Table) 12/03/21 12/03/21 12/04/21 Range/Units 16:54 20:23 04:33 RBC (4.30-5.90) m/uL Hct (39.0-53.0) % Lymphocytes # (1.0-4.8) k/uL Glucose 121 H (74-99) mg/dL POC Glucose (mg/dL) 201 H 189 H (70-110) mg/dL 12/04/21 12/04/21 Range/Units 04:33 06:05 RBC 3.92 L (4.30-5.90) m/uL Hct 38.6 L (39.0-53.0) % Lymphocytes # 0.6 L (1.0-4.8) k/uL Glucose (74-99) mg/dL POC Glucose (mg/dL) 127 H (70-110) mg/dL Assessment and Plan Assessment: Presyncope with fall under investigation Mobitz type II, symptomatic as above. Status post pacemaker on 12/03 Left atelectasis rather than pneumonia which is not felt likely, patient does not have white count, no dyspnea, on room air. Will check procalcitonin level. Hypomagnesemia Diabetes Mellitus type 2, A1C 6.5. Hypertension Hyperlipidemia Post CABG Plan: This is a pleasant 86 years old male status post pacemaker placement today for his arrhythmia. His symptoms improved. Clonidine and metoprolol Kevin on hold Metformin is on hold Discontinue IV fluid Cardiology team on the board. Patient cleared for discharge by staff editor Patient and wants patient discharged to subacute rehab, social services designee on the case Labs and medication were reviewed.. Continue same treatment. Continue with symptomatic treatment. Resume home medication. Monitor lytes and vitals. DVT and GI prophylaxis. Further recommendations as per clinical course of the patient DVT prophylaxis: Subcutaneous heparin GI Prophylaxis: Pepcid PT/OT: Noted
[2021-12-04 21:03] LABS: Glucose,Whole Blood 95 mg/dL (70-110)
[2021-12-04] MEDS: INSULIN DETEMIR (LEVEMIR) 100 UNIT/ML SYR SQ SCH (21:16)
[2021-12-04] MEDS: ATORVASTATIN 10 MG TAB PO SCH (21:16)
[2021-12-05] MEDS: SODIUM CHLORIDE 0.9% 1,000 ML IV SCH ×2 (01:07→08:19)
[2021-12-05 06:09] LABS: Glucose,Whole Blood 190 mg/dL (70-110)
[2021-12-05] MEDS: INSULIN ASPART (NovoLOG) 100 UNIT/ML VIAL SQ SCH ×6 (06:16→16:56)
[2021-12-05] MEDS: VALSARTAN 160 MG TAB PO SCH (08:19)
[2021-12-05] MEDS: OXYBUTYNIN 10 MG TAB.ER.24 PO SCH (08:19)
[2021-12-05] MEDS: TAMSULOSIN 0.4 MG CAP.ER.24H PO SCH (08:19)
[2021-12-05] MEDS: HEPARIN SODIUM,PORCINE/PF 5,000 UNIT/0.5 ML SYRINGE SQ SCH (08:19)
[2021-12-05] MEDS: amLODIPine 10 MG TAB PO SCH (08:20)
[2021-12-05] MEDS ORDERED: ASPIRIN 81 MG PO SCH (09:00)
[2021-12-05 10:57] LABS: Calcium 8.5 mg/dL (8.4-10.2); Magnesium 1.6 mg/dL (1.6-2.3); Potassium 3.8 mmol/L (3.5-5.1)
[2021-12-05 11:31] VITALS: RESP 18
--- NOTE | 2021-12-05 11:35 | P.PN ---
Subjective This is a pleasant 86-year-old male past medical history significant for coronary artery disease with prior CABG, type 2 diabetes, hypertension, dysl ipidemia. He used to see Dr. Palma 10+ years ago. We have been asked to see in consultation for near-syncope, nonspecific cardiac arrhythmia. Patient presents emergency department with complaints of lightheadedness and near syncope. Patient states yesterday he was outside he was started to walk inside on his porch, he states that he stepped up on the ledge by the door and all of a sudden fell backwards and could not get up. He did not lose consciousness. He has had some symptoms of dizziness. He states he felt generalized weakness on the ground and could not get himself up. He denies any syncope in the past. He denies any chest pain, shortness of breath, palpitations, nausea, vomiting, fever, cough, chills. No history of CVA or seizures. Former smoker. On 12/03 patient underwent biventricular pacemaker implantation with left bundle pacing with Dr. Casey. 12/05 Patient seen and examined at bedside, no acute distress. Patient tolerated PM procedure well without any acute complications. Device was checked and evaluated by Dr. Casey, device functioning normally. Chest xray reviewed and stable with no acute finding. Patient is feeling well, no chest pain or shortness of breath, dizziness, lightheadedness, syncope or near syncope. Plan for subacute rehab placement. Telemetry reviewed, pacemaker functioning correctly. Blood pressure 120/69, HR 80s-90s on telemetry. Echocardiogram revealed an EF 5560 % mild to moderate mitral MR, mild aortic regurgitation, mild tricuspid regurgitation PHYSICAL EXAMINATION Vitals reviewed CONSTITUTIONAL: No apparent distress. HEENT: Head is normocephalic. Pupils are equal, round. Sclerae anicteric. Mucous membranes of the mouth are moist. No JVD. No carotid bruit. CHEST EXAMINATION: Lungs are clear to auscultation. No chest wall tenderness is noted on palpation or with deep breathing. HEART EXAMINATION: Regular rate and rhythm. S1, S2 heard. Systolic murmur at apex. ABDOMEN: Soft, nontender. Positive bowel sounds. EXTREMITIES: 2+ peripheral pulses, no lower extremity edema and no calf tenderness. NEUROLOGIC EXAMINATION: Patient is awake, alert and oriented x3. ASSESSMENT Lightheadedness/Dizziness, possible near syncope 2nd degree AV block mobitz II Status post biventricular pacemaker implantation with left bundle pacing on 12/03 Generalized weakness Hypomagnesemia, resolved Coronary artery disease with prior CABG Type 2 diabetes History of hypertension Dyslipidemia PLAN Continue amlodipine 10 mg daily, aspirin 81mg daily, and valsartan 160 mg BID Continue statin Patient waiting for subacute rehab From cardiology perspective, patient is stable to be discharged. Follow-up in the office within one week. Nurse practitioner note has been reviewed by physician. Signing provider agrees with the documented findings, assessment, and plan of care. Objective - Vital Signs Vital signs: Vital Signs Temp 98.3 F 12/05/21 11:28 Pulse 144 H 12/05/21 11:28 Resp 18 12/05/21 11:28 BP 120/69 12/05/21 11:28 Pulse Ox 97 12/05/21 11:28 FiO2 Intake & Output 12/04/21 12/05/21 12/05/21 18:59 06:59 18:59 Intake Total 380 10 10 Output Total 625 Balance -245 10 10 Intake: IV 20 10 10 Invasive Line 1 20 10 5 Invasive Line 2 5 Oral 360 Output: Urine 625 Other: Voiding Method Toilet Toilet Urinal Urinal # Voids 1 - Labs CBC & Chem 7: 12/04/21 04:33 12/05/21 09:20 Labs: Abnormal Lab Results - Last 24 Hours (Table) 12/04/21 12/04/21 12/05/21 Range/Units 11:40 16:36 06:07 POC Glucose (mg/dL) 140 H 204 H 190 H (70-110) mg/dL
[2021-12-05 11:52] LABS: Glucose,Whole Blood 130 mg/dL (70-110)
[2021-12-05] MEDS: MAGNESIUM SULFATE-D5W PMX 1 GM in DEXTROSE/WATER 1 100ML.BAG IVPB SCH ×2 (14:31→15:26)
[2021-12-05 15:09] VITALS: BP 136/72; PULSE 83; TEMP 98.9
--- NOTE | 2021-12-05 22:46 | P.DS ---
Providers Date of admission: 12/02/21 00:36 Attending physician: Piotr Salmeron Consults: 12/01/21 21:49 Consult Physician Urgent Consulting Provider: Herber Pantoja Consult Reason/Comments: Hypomagnesemia, syncopenear, cardiac arrhythmianonspecific Do you want consulting provider notified?: Yes [facility] Course: Diagnosis Presyncope with fall Mobitz type II, symptomatic as above. Status post pacemaker on 12/03 Left atelectasis rather than pneumonia which is not felt likely, patient does not have white count, no dyspnea, on room air. Hypomagnesemia Diabetes Mellitus type 2, A1C 6.5. Hypertension Hyperlipidemia Post CABG Full Code Discharge Disposition Patient is stable for discharge home with homecare. He has been cleared by cardiology. Patient is postoperative pacemaker insertion on 12/03. Patient will follow up with primary care and cardiology. Clonidine and metoprolol have been discontinued. Patient has been started on valsartan, amlodipine. Ok to resume metformin on discharge. He is also discharge on aspirin 81 mg po daily. Hospital Course This is an 86 year old male patient of Dr. Newby, past medical history of hypertension, hyperlipidemia, diabetes, coronary artery bypass grafting. Patient has [facility] in the past reports that he has not been evaluated in a long time. Patient presents to the emergency room with complaints of lightheadedness while ambulating resulting in fall. States he was sitting on porch, got up, and had just reached the last step into his house when he felt dizzy and fell backwards. Patient states he did not lose consciousness, denies injury. No chest pain reported. There was question of patient being in atrial fibrillation in the EC. EKG in the ER shows sinus rhythm with PVC's heart rate of 93. QT interval 436. Patient had chest xray showing possible left lower lobe pneumonia. Chest xray reviewed pleural effusion possibly from fluid overload, pneumonia felt unlikely. Does not have a white count, has maintained adequate saturation on room air, 97%. Denies shortness of breath. Does have low grade fever 99.4. Patient received a 1L fluid bolus in the E.C. Troponin level negative x 3, proBNP 867. TSH within normal limits. Urinalysis is negative. Procalcitonin level was negative at 0.06. TSH was checked and it is normal at 2.130. Patient admitted to the hospital with consult placed to cardiology. Echocardiogram taken reveals an EF of 55 to 60% with mild to moderate regurgitation, mild tricuspid regurgitation, mild aortic regurgitation. He was found to be in a mobitz type 2 heart block and felt to be symptomatic. He underwent biventricular pacemaker implant with Dr Casey on 12/03/21. Patient did have increased creatinine up to 1.26 on 12/03 which did improve. He also was found to have low magnesium on admission 1.2 which was replaced. 12/05/2021 Patient evaluated today sitting up in chair. He is anticipating discharge today. Cardiology has cleared patient. He denies chest pain, no shortness of breath. No dizziness or lightheadedness reported. He has been up ambulating. Surgical dressing in tact. He is tolerating diet, bowels are moving, denies dysuria. Lungs are clear, S1 S2 auscultated. Focal neurological exam is negative. Most recent labs showing white count 5.2, hgb 13.1, sodium 138, potassium 3.8, BUN 17, creatinine 0.93, blood glucose in the 100s. A1c 6.5. Magnesium 1.6 and patient did receive electrolyte replacement prior to discharge. No acute events overnight. He has remained afebrile, heart rate 83, blood pressure 126/72, 97% room air. PT had recommended home with HC versus subacute rehab and patient will discharge home with HC services in place. Follow up in device clinic in 5 days. Total time taken in discharge planning greater than 35 minutes. Please see medication reconciliation for a list of current medication. Thank you for allowing us to participate in the care of this patient. The impression and plan of care has been dictated by Manisha Valdes, Nurse Practitioner as directed. Dr. Sanya MD I have performed a history and physical examination and medical decision making of this patient, discussed the same with the dictator, and agree with the dictators assessment and plan as written, documented as a scribe. Based on total visit time, I have performed more than 50% of this visit. Patient Condition at Discharge: Stable Plan - Discharge Summary Discharge Rx Participant: Yes New Discharge Prescriptions: New amLODIPine [Norvasc] 10 mg PO DAILY #90 tab Aspirin 81 mg PO DAILY tab Valsartan [Diovan] 160 mg PO BID #60 tab Continue Simvastatin [Zocor] 20 mg PO HS Tolterodine ER [Detrol LA] 4 mg PO DAILY metFORMIN HCL ER [Glucophage XR] 1,000 mg PO BID Tamsulosin HCl [Flomax] 0.4 mg PO DAILY Discontinued cloNIDine HCL [Catapres] 0.1 mg PO HS amLODIPine BESYLATE/BENAZEPRIL [Amlodipine-Benazepril 10-20 mg] 1 cap PO DAILY Metoprolol Tartrate [Lopressor] 25 mg PO BID Aspirin 325 mg PO DAILY Discharge Medication List Simvastatin [Zocor] 20 mg PO HS 11/18/13 [History] Tamsulosin HCl [Flomax] 0.4 mg PO DAILY 12/01/21 [History] Tolterodine ER [Detrol LA] 4 mg PO DAILY 12/01/21 [History] metFORMIN HCL ER [Glucophage XR] 1,000 mg PO BID 12/01/21 [History] Aspirin 81 mg PO DAILY tab 12/04/21 [Rx] Valsartan [Diovan] 160 mg PO BID #60 tab 12/04/21 [Rx] amLODIPine [Norvasc] 10 mg PO DAILY #90 tab 12/04/21 [Rx] Follow up Appointment(s)/Referral(s): Berlin Casey MD [STAFF PHYSICIAN] - 1 Week (Offices will call with marco swanson and follow up appointment information.) Moe Newby MD [Primary Care Provider] - 1 Week (Offices do not have any appointments available. They have placed you on the cancellation list.) Ambulatory/Diagnostic Orders: Basic Metabolic Panel [LAB.AMB] Time Frame: 3 Days, Location: None Selected Magnesium [LAB.AMB] Time Frame: 3 Days, Location: None Selected Patient Instructions/Handouts: Syncope (ED), Heart Block (ED), Pacemaker (DC) Activity/Diet/Wound Care/Special Instructions: Activity Restrictions or Additional Instructions: Instructions following a heart rhythm device implant. 1. Keep dressing dry for 5 days. You may cover the area with surrounding with a clean dressing/wrap prior to shower 2. The dressing can be removed in about 5 days in the Device Clinic at [facility]. Absorbable sutures were used to close the wound. 3. Avoid raising the left arm above the shoulder level. 4 week resection. 4. Avoid arm movements such as back scratching, rubbing the head or pulling on a cord. 4 week for restriction. 5. Gentle range of motion movements of the shoulder, closest institution should be performed to avoid a frozen shoulder. (Pendulum exercises of the shoulder) 6. The opposite arm may be used freely. 7. Avoid driving for 7 days. 8. Avoid activities such as golfing, swimming, weed whacking, lifting more than 10 pounds of weight, bowling, and weight training/lifting (6 week restriction) 9. Being close to home induction cooktops and activities such as wood chopping w ith axe, pull ups, power lifting will always be a problem 10. Arm sling is only remind her not to raise arm above the head. You do not need to keep the arm completely immobilized. You're free to move the arm and use it in normal activities. In case of any problems, [phone] Attention: Device Clinic Device clinic follow up in 5 days Follow up with primary private tutors and teachers in 2-3 months Discharge Disposition: HOME WITH HOME HEALTH SERVICES
== END 2021-12-05 16:38 | disposition home health service (06) | DRG 243 ==
LOC: EC 19:01 → 3SCARD 12-02 00:36
PROVIDERS: ADMIT Hospitalist; ATTEND Hospitalist
PROC: B5171ZA Fluoroscopy of Left Subclavian Vein using Low Osmolar Contrast, Guidance (ICD-10-PCS; 2021-12-03)
PROC: B51N1ZZ Fluoroscopy of Left Upper Extremity Veins using Low Osmolar Contrast (ICD-10-PCS; 2021-12-03)
PROC: 02HK4JZ Insertion of Pacemaker Lead into Right Ventricle, Percutaneous Endoscopic Approach (ICD-10-PCS; 2021-12-03)
PROC: 0JH607Z Insertion of Cardiac Resynchronization Pacemaker Pulse Generator into Chest Subcutaneous Tissue and Fascia, Open Approach (ICD-10-PCS; principal; 2021-12-03 07:30)
PROC: 02H63JZ Insertion of Pacemaker Lead into Right Atrium, Percutaneous Approach (ICD-10-PCS; 2021-12-03 07:30)
DX: I44.1 Atrioventricular block, second degree (principal); J90 Pleural effusion, not elsewhere classified; J98.11 Atelectasis; I48.91 Unspecified atrial fibrillation; E11.22 Type 2 diabetes mellitus with diabetic chronic kidney disease; I12.9 Hypertensive chronic kidney disease with stage 1 through stage 4 chronic kidney disease, or unspecified chronic kidney disease; N18.30 Chronic kidney disease, stage 3 unspecified; I49.9 Cardiac arrhythmia, unspecified; E78.5 Hyperlipidemia, unspecified; E83.42 Hypomagnesemia; E87.70 Fluid overload, unspecified; I49.3 Ventricular premature depolarization; I25.10 Atherosclerotic heart disease of native coronary artery without angina pectoris; W19.XXXA Unspecified fall, initial encounter; Y92.008 Other place in unspecified non-institutional (private) residence as the place of occurrence of the external cause; Z95.1 Presence of aortocoronary bypass graft; Z79.899 Other long term (current) drug therapy; Z79.82 Long term (current) use of aspirin; Z79.84 Long term (current) use of oral hypoglycemic drugs; Z87.891 Personal history of nicotine dependence; Z95.0 Presence of cardiac pacemaker
CPT/HCPCS: 33208; 33225; 36415; 71045; 80048; 80053; 81003; 83036; 83735; 83880; 84145; 84443; 84484; 85025; 85610; 85730; 93005; 93306; 96365; 96366; 99285

== ENCOUNTER 2022-04-12 13:22 | Emergency (ER) | payer MEDICARE ==
--- NOTE | 2022-04-12 13:41 | ED ---
General Adult HPI - General Source: patient, family, RN notes reviewed Mode of arrival: ambulatory Limitations: no limitations <Camden Najera - Last Filed: 04/12/22 13:40> <Moe Yan - Last Filed: 04/12/22 15:58> <Eunice Ward - Last Filed: 04/19/22 23:26> - General Stated complaint: AMS Time Seen by Provider: 04/12/22 13:40 - History of Present Illness Initial comments: 87-year-old male presents emergency Department with for evaluation of confusion. Patient's been having worsening confusion over the last 1 week. Patient denies any headache, dizziness, trauma no falls no head injury. Patient's had no recent infections. does state that he had a tooth drilled out 2 weeks ago but had no complications from this. states that he had no memory issues prior to one week ago. No history of dementia. Patient r eportedly was trimming on all the lights in the house for no known reason he could not remember how to make coffee today. He denies chest pain shortness breath nausea vomiting (Camden Najera) This is an 87-year-old male who said gives most history. States that her has become more and more forgetful for the last 8 days. 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 Patient himself says he is becoming forgetful he goes to the refrigerator door to Figure out how to open it. states he put the other meds in the oven yesterday and is never done that in the past. Both patient and the agree that he all of a sudden seems becoming much more forgetful than normal. Patient denies any recent fever chills or cough per patient denies any injury or trauma. Patient denies any chest pain difficult breathing shortest breath per patient denies any abdominal pain patient denies nausea vomiting diarrhea. Patient denies any drinking history patient denies any liver problems. (Moe Yan) - Related Data Home Medications Medication Instructions Recorded Confirmed Simvastatin [Zocor] 20 mg PO HS 11/18/13 04/12/22 Tamsulosin HCl [Flomax] 0.4 mg PO DAILY 12/01/21 04/12/22 Tolterodine ER [Detrol LA] 4 mg PO DAILY 12/01/21 04/12/22 metFORMIN HCL ER [Glucophage XR] 1,000 mg PO BID 12/01/21 04/12/22 Aspirin EC [Ecotrin Low Dose] 81 mg PO DAILY 04/12/22 04/12/22 Metoprolol Tartrate [Lopressor] 25 mg PO BID 04/12/22 04/12/22 cloNIDine HCL [Catapres] 0.1 mg PO DAILY 04/12/22 04/12/22 Previous Rx's Medication Instructions Recorded Valsartan [Diovan] 160 mg PO BID #60 tab 12/04/21 amLODIPine [Norvasc] 10 mg PO DAILY #90 tab 12/04/21 Allergies Allergy/AdvReac Type Severity Reaction Status Date / Time No Known Allergies Allergy Verified 04/12/22 15:46 Review of Systems ROS Other: All systems not noted in ROS Statement are negative. <Camden Najera - Last Filed: 04/12/22 13:40> ROS Other: All systems not noted in ROS Statement are negative. <Moe Yan - Last Filed: 04/12/22 15:58> ROS Other: All systems not noted in ROS Statement are negative. <Eunice Ward - Last Filed: 04/19/22 23:26> ROS Statement: Those systems with pertinent positive or pertinent negative responses have been documented in the HPI. Past Medical History Past Medical History: Diabetes Mellitus, Hyperlipidemia, Hypertension History of Any Multi-Drug Resistant Organisms: None Reported Past Surgical History: Coronary Bypass/CABG Smoking Status: Former smoker <Camden Najera - Last Filed: 04/12/22 13:40> General Exam <Moe Yan - Last Filed: 04/12/22 15:58> - General Exam Comments Initial Comments: GENERAL: Patient is well-developed and well-nourished. Patient is nontoxic and well- hydrated and is in no acute distress. ENT: Neck is soft and supple. No significant lymphadenopathy is noted. Oropharynx is clear. Moist mucous membranes. Neck has full range of motion without eliciting any pain. EYES: The sclera were anicteric and conjunctiva were pink and moist. Extraocular movements were intact and pupils were equal round and reactive to light. Eyelids were unremarkable. PULMONARY: Unlabored respirations. Good breath sounds bilaterally. No audible rales rhonchi or wheezing was noted. CARDIOVASCULAR: There is a regular rate and rhythm without any murmurs gallops or rubs. ABDOMEN: Soft and nontender with normal bowel sounds. No palpable organomegaly was noted. There is no palpable pulsatile mass. SKIN: Skin is clear with no lesions or rashes and otherwise unremarkable. NEUROLOGIC: Patient is alert and oriented x3. Cranial nerves II through XII are grossly intact. Motor and sensory are also intact. Normal speech, volume and content. Symmetrical smile. MUSCULOSKELETAL: Normal extremities with adequate strength and full range of motion. LYMPHATICS: No significant lymphadenopathy is noted PSYCHIATRIC: Normal psychiatric evaluation. (Moe Yan) Course Vital Signs 04/12/22 04/12/22 04/12/22 13:39 16:32 17:03 Temperature 97.5 F L Pulse Rate 89 67 76 Respiratory 16 18 18 Rate Blood Pressure 214/93 195/84 173/73 O2 Sat by Pulse 97 97 98 Oximetry 04/12/22 17:55 Temperature Pulse Rate 75 Respiratory 18 Rate Blood Pressure 159/73 O2 Sat by Pulse 97 Oximetry Medical Decision Making - Lab Data Result diagrams: 04/12/22 15:12 <Moe Yan - Last Filed: 04/12/22 15:58> - Lab Data Result diagrams: 04/12/22 15:12 04/12/22 16:20 <Eunice Ward - Last Filed: 04/19/22 23:26> - Medical Decision Making EKG was interpreted by myself. EKG shows sinus bradycardia 59 bpm SC interval is 192 QRS is 85 Q-T intervals 43 QTC is 42. Patient's shows no ST segment joshua vation or depression. Was pt. sent in by a medical professional or institution (, PA, MACHINE FEED OPERATOR, urgent care, hospital, or snf...) When possible be specific @ -[No] Did you speak to anyone other than the patient for history (EMS, parent, family, police, friend...)? What history was obtained from this source @ -Eights gives most of the history Did you review nursing and triage notes (agree or disagree)? Why? @ -[I reviewed and agree with nursing and triage notes] Were old charts reviewed (outside hosp., previous admission, EMS record, old EKG, old radiological studies, urgent care reports/EKG's, snf records)? Report findings @ -[No old charts were reviewed] Differential Diagnosis (chest pain, altered mental status, abdominal pain women, abdominal pain men, vaginal bleeding, weakness, fever, dyspnea, syncope, headache, dizziness, GI bleed, back pain, seizure, CVA, palpatations, mental health)? @ -Differential Altered Mental Status: Hypoglycemia, DKA, hypercapnia, ETOH, overdose, CO poisoning, trauma, myxedema coma, HTN encephalopathy, infection, encephalitis, psychosis, intercranial hemorrhage, hepatic encephalopathy, meningitis, CVA, this is not meant to be an all-inclusive list EKG interpreted by me (3pts min.). @ -[As above] X-rays interpreted by me (1pt min.). @ -Chest x-ray shows no acute abnormality and it was interpreted by myself. CT interpreted by me (1pt min.). @ -CT of the brain is interpreted by myself shows no acute abnormality U/S interpreted by me (1pt. min.). @ -[None done] What testing was considered but not performed or refused? (CT, X-rays, U/S, labs)? Why? @ -[None] What meds were considered but not given or refused? Why? @ -[None] Did you discuss the management of the patient with other professionals (professionals i.e. , PA, MACHINE FEED OPERATOR, lab, RT, psych nurse, long term care social worker, switchboard wire worker helper, teacher, navigation officer, leather case finisher)? Give summary @ -[No] Was smoking cessation discussed for >3mins.? @ -[No] Was critical care preformed (if so, how long)? @ -[No] Were there social determinants of health that impacted care today? How? (Homelessness, low income, unemployed, alcoholism, drug addiction, transportation, low edu. Level, literacy, decrease access to med. care, detention, rehab)? @ -[No] Was there de-escalation of care discussed even if they declined (Discuss DNR or withdrawal of care, Hospice)? DNR status @ -[No] What co-morbidities impacted this encounter? (DM, HTN, Smoking, COPD, CAD, Cancer, CVA, ARF, Chemo, Hep., AIDS, mental health diagnosis, sleep apnea, morbid obesity)? @ -[None] Poses a threat to life or bodily function? How? (Chest pain, [place], [place], pneumonia, PE, COPD, DKA, ARF, appy, cholecystitis, CVA, Diverticulitis, Homicidal, Suicidal, threat to staff... and all critical care pts) @ -[No] Patient was given hydralazine for high blood pressure. Dr. Ward will be taking over the care of this patient at 4 PM (Moe Yan) Was patient admitted / discharged? The patient was signed out to me at the beginning of my shift. I did evaluate the patient myself. I discussed the laboratory results with the patient and his . CT also discussed. No acute findings. At this time the patient is safe for discharge home however needs follow-up with his primary care physician. Recommend MRI, dementia screening and possible consultation with a neurologist. was agreeable to this. She is informed that if the patient has any safety concerns at home that he may need to be brought back to the emergency department. understood this. They were given written and verbal discharge instructions the patient is discharged home in stable condition Undiagnosed new problem with uncertain prognosis? yes Drug Therapy requiring intensive monitoring for toxicity (Heparin, Nitro, Insulin, Cardizem)? no Were any procedures done? no Diagnosis/symptom? acute encephalopathy Acute, or Chronic, or Acute on Chronic? acute Uncomplicated (without systemic symptoms) or Complicated (systemic symptoms)? complicated Side effects of treatment? none Exacerbation, Progression, or Severe Exacerbation] no Poses a threat to life or bodily function? no (Eunice Ward) - Lab Data Lab Results 04/12/22 04/12/22 04/12/22 Range/Units 14:17 15:12 16:20 WBC 6.5 (3.8-10.6) k/uL RBC 4.37 (4.30-5.90) m/uL Hgb 14.2 (13.0-17.5) gm/dL Hct 39.9 (39.0-53.0) % MCV 91.2 (80.0-100.0) fL MCH 32.4 (25.0-35.0) pg MCHC 35.5 (31.0-37.0) g/dL RDW 13.1 (11.5-15.5) % Plt Count 139 L (150-450) k/uL MPV 9.0 Neutrophils % 77 % Lymphocytes % 13 % Monocytes % 6 % Eosinophils % 1 % Basophils % 0 % Neutrophils # 5.0 (1.3-7.7) k/uL Lymphocytes # 0.9 L (1.0-4.8) k/uL Monocytes # 0.4 (0-1.0) k/uL Eosinophils # 0.1 (0-0.7) k/uL Basophils # 0.0 (0-0.2) k/uL PT (9.0-12.0) sec INR (<1.2) APTT (22.0-30.0) sec Sodium (137-145) mmol/L Potassium (3.5-5.1) mmol/L Chloride (98-107) mmol/L Carbon Dioxide (22-30) mmol/L Anion Gap mmol/L BUN (9-20) mg/dL Creatinine (0.66-1.25) mg/dL Est GFR (CKD-EPI)AfAm (>60 ml/min/1.73 sqM) Est GFR (CKD-EPI)NonAf (>60 ml/min/1.73 sqM) Glucose (74-99) mg/dL Calcium (8.4-10.2) mg/dL Total Bilirubin (0.2-1.3) mg/dL AST (17-59) U/L ALT (4-49) U/L Alkaline Phosphatase (38-126) U/L Ammonia (<30) umol/L Troponin I <0.012 (0.000-0.034) ng/mL Total Protein (6.3-8.2) g/dL Albumin (3.5-5.0) g/dL Urine Color Light Yellow Urine Appearance Clear (Clear) Urine pH 6.0 (5.0-8.0) Ur Specific [place] 1.015 (1.001-1.035) Urine Protein 1+ H (Negative) Urine Glucose (UA) 3+ H (Negative) Urine Ketones Negative (Negative) Urine Blood Negative (Negative) Urine Nitrite Negative (Negative) Urine Bilirubin Negative (Negative) Urine Urobilinogen <2.0 (<2.0) mg/dL Ur Leukocyte Esterase Negative (Negative) Urine RBC 1 (0-5) /hpf Urine WBC <1 (0-5) /hpf Ur Squamous Epith Cells <1 (0-4) /hpf Hyaline Casts 1 (0-2) /lpf 04/12/22 04/12/22 04/12/22 Range/Units 16:20 16:20 16:30 WBC (3.8-10.6) k/uL RBC (4.30-5.90) m/uL Hgb (13.0-17.5) gm/dL Hct (39.0-53.0) % MCV (80.0-100.0) fL MCH (25.0-35.0) pg MCHC (31.0-37.0) g/dL RDW (11.5-15.5) % Plt Count (150-450) k/uL MPV Neutrophils % % Lymphocytes % % Monocytes % % Eosinophils % % Basophils % % Neutrophils # (1.3-7.7) k/uL Lymphocytes # (1.0-4.8) k/uL Monocytes # (0-1.0) k/uL Eosinophils # (0-0.7) k/uL Basophils # (0-0.2) k/uL PT 10.7 (9.0-12.0) sec INR 1.0 (<1.2) APTT 24.4 (22.0-30.0) sec Sodium 141 (137-145) mmol/L Potassium 5.0 (3.5-5.1) mmol/L Chloride 108 H (98-107) mmol/L Carbon Dioxide 26 (22-30) mmol/L Anion Gap 7 mmol/L BUN 25 H (9-20) mg/dL Creatinine 1.09 (0.66-1.25) mg/dL Est GFR (CKD-EPI)AfAm 69 (>60 ml/min/1.73 sqM) Est GFR (CKD-EPI)NonAf 60 (>60 ml/min/1.73 sqM) Glucose 95 (74-99) mg/dL Calcium 9.3 (8.4-10.2) mg/dL Total Bilirubin 0.8 (0.2-1.3) mg/dL AST 39 (17-59) U/L ALT 16 (4-49) U/L Alkaline Phosphatase 34 L (38-126) U/L Ammonia <9 (<30) umol/L Troponin I (0.000-0.034) ng/mL Total Protein 7.0 (6.3-8.2) g/dL Albumin 4.5 (3.5-5.0) g/dL Urine Color Urine Appearance (Clear) Urine pH (5.0-8.0) Ur Specific [place] (1.001-1.035) Urine Protein (Negative) Urine Glucose (UA) (Negative) Urine Ketones (Negative) Urine Blood (Negative) Urine Nitrite (Negative) Urine Bilirubin (Negative) Urine Urobilinogen (<2.0) mg/dL Ur Leukocyte Esterase (Negative) Urine RBC (0-5) /hpf Urine WBC (0-5) /hpf Ur Squamous Epith Cells (0-4) /hpf Hyaline Casts (0-2) /lpf Disposition <Camden Najera - Last Filed: 04/12/22 13:40> <Moe Yan - Last Filed: 04/12/22 15:58> Is patient prescribed a controlled substance at d/c from ED?: No Time of Disposition: 17:42 <Eunice Ward - Last Filed: 04/19/22 23:26> Clinical Impression: Hypertensive urgency, Altered mental status Disposition: HOME SELF-CARE Condition: Stable Instructions (If sedation given, give patient instructions): Altered Mental Status (ED) Additional Instructions: You'll need further testing through your primary care office. I do recommend the dementia questionnaire, vitamin deficiency testing, MRI and possible neurology evaluation. Please return should you have any new or worsening symptoms, or if you feel unsafe at home Referrals: Moe Newby MD [Primary Care Provider] - 1-2 days
--- NOTE | 2022-04-12 14:13 | XR ---
EXAMINATION TYPE: XR chest 2V DATE OF EXAM: 04/12/2022 2:07 PM COMPARISON: Chest x-ray 12/03/2021, chest x-ray 12/01/2021 TECHNIQUE: XR chest 2V . CLINICAL INDICATION:Male, 87 years old with history of altered mental status; FINDINGS: Lungs/Pleura: Bibasilar subsegmental atelectasis. No focal airspace consolidation, sizable pleural ef fusion or pneumothorax. Pulmonary vascularity: Unremarkable. Heart/mediastinum: Cardiomediastinal silhouette is enlarged and stable. Three lead cardiac conduction device overlying the left hemithorax. Musculoskeletal: No acute osseous pathology. Midline sternotomy wires and surgical clips project over the mediastinum. Degenerative changes of the acromioclavicular joints bilaterally. IMPRESSION: No acute cardiopulmonary disease/process.
[2022-04-12 14:20] LABS: Appearance,Urine Clear (Clear); Bilirubin,Urine Negative (Negative); Blood,Urine Negative (Negative); Color,Urine Light Yellow; Glucose,Urine (UA) 3+ (Negative); Hyaline Casts,Urine 1 /lpf (0-2); Ketones,Urine Negative (Negative); Leukocyte Esterase,Urine Negative (Negative); Nitrite,Urine Negative (Negative); Protein,Urine 1+ (Negative); RBC,Urine 1 /hpf (0-5); Specific Gravity,Urine 1.015 (1.001-1.035); Squamous Epithelial Cell,Urine <1 /hpf (0-4); Urobilinogen,Urine <2.0 mg/dL (<2.0); WBC,Urine <1 /hpf (0-5)
--- NOTE | 2022-04-12 14:42 | CT ---
EXAMINATION TYPE: CT brain wo con CT DLP: 1100 mGycm, Automated exposure control for dose reduction was used. DATE OF EXAM: 04/12/2022 2:06 PM COMPARISON: None. CLINICAL INDICATION:Male, 87 years old with history of Altered mental status, Altered mental status TECHNIQUE: Brain: Axial CT images of the brain were obtained with coronal and sagittal reformats created and rev iewed. Contrast used: None. Oral contrast used: None. FINDINGS: Brain: Extra-axial spaces: No abnormal extra-axial fluid collections. Ventricular system: Dilatation in proportion to cerebral atrophy. Cerebral parenchyma: No acute intraparenchymal hemorrhage or mass effect. The ojeda-white junction is well differentiated. Remote lacunar injuries of the right caudate and left insular white matter. Diallo cifications of the right basal ganglia. Nonspecific white matter changes which are likely sequelae of chronic microangiopathy. Cerebellum: Unremarkable. Mass effect: No evidence of midline shift. Intracranial vasculature: Atherosclerotic calcifications of the intracranial vessels. Soft tissues: Normal. Calvarium/osseous structures: No depressed skull fracture. Paranasal sinuses and mastoid air cells: Mild scattered paranasal sinus disease. Visualized orbits: Bilateral aphakia IMPRESSION: 1. No acute intracranial process. 2. Remote lacunar injuries along with nonspecific white matter changes likely secondary to chronic mi croangiopathy.
[2022-04-12 15:50] LABS: Basophils % (A) 0 %; Eosinophils # (A) 0.1 k/uL (0-0.7); Eosinophils % (A) 1 %; HCT 39.9 % (39.0-53.0); HGB 14.2 gm/dL (13.0-17.5); Lymphocytes # (A) 0.9 k/uL (1.0-4.8); Lymphocytes % (A) 13 %; MCH 32.4 pg (25.0-35.0); MCHC 35.5 g/dL (31.0-37.0); MCV 91.2 fL (80.0-100.0); Monocytes # (A) 0.4 k/uL (0-1.0); Monocytes % (A) 6 %; Neutrophils % (A) 77 %; Platelet Count 139 k/uL (150-450); RBC 4.37 m/uL (4.30-5.90); RDW 13.1 % (11.5-15.5); WBC 6.5 k/uL (3.8-10.6)
[2022-04-12 15:54] VITALS: TEMP 97.5
[2022-04-12] MEDS ORDERED: hydrALAZINE HCL 20 MG/ML 1 ML VIAL IVP STA (15:58)
[2022-04-12 16:33] VITALS: RESP 18
[2022-04-12 16:59] LABS: Albumin 4.5 g/dL (3.5-5.0); Calcium 9.3 mg/dL (8.4-10.2); Total Bilirubin 0.8 mg/dL (0.2-1.3)
[2022-04-12 17:03] LABS: Partial Thromboplastin Time 24.4 sec (22.0-30.0); Prothrombin Time 10.7 sec (9.0-12.0)
[2022-04-12 17:56] VITALS: BP 159/73; PULSE 75
== END 2022-04-12 17:58 | disposition home or self-care (01) ==
LOC: EC 13:22
DX: R41.82 Altered mental status, unspecified (principal); I16.0 Hypertensive urgency; E11.9 Type 2 diabetes mellitus without complications; E78.5 Hyperlipidemia, unspecified; I10 Essential (primary) hypertension; Z87.891 Personal history of nicotine dependence; Z79.84 Long term (current) use of oral hypoglycemic drugs; Z79.82 Long term (current) use of aspirin; Z79.899 Other long term (current) drug therapy
CPT/HCPCS: 36415; 93005; 80053; 82140; 84484; 85025; 85610; 85730; 81001; 71046; 70450; 99285; 96374; J0360